=== PATIENT | female | born 1985 | race Caucasian/White ===

== ENCOUNTER 2022-03-02 05:59 | Inpatient (IN) | payer OTHER ==
[2022-03-02] MEDS ORDERED: Carboprost Tromethamine 250 MCG/1 ML Amp IM PRN ×3 (06:00→08:45)
[2022-03-02] MEDS ORDERED: Sodium Chloride 0.9% 10 ML Syringe FLUSH SCH (06:00)
[2022-03-02] MEDS ORDERED: Oxytocin/Normal Saline 30 UNIT/500 ML BAG IV SCH ×2 (06:00→08:45)
[2022-03-02] MEDS ORDERED: Lactated Ringers 1,000 ML IV SCH ×4 (06:00→08:45)
[2022-03-02] MEDS ORDERED: Sodium Chloride 0.9% 10 ML Syringe FLUSH PRN ×2 (06:00→08:45)
[2022-03-02] MEDS ORDERED: ceFAZolin 1 GM in Sodium Chloride 0.9% 50 ML IV SCH (06:00)
[2022-03-02] MEDS ORDERED: Methylergonovine 0.2 MG Tab PO PRN ×2 (06:00→08:45)
[2022-03-02] MEDS ORDERED: Oxytocin 10 Units/1 ML SDV IM PRN ×2 (06:00→08:45)
[2022-03-02] MEDS ORDERED: Tranexamic Acid 1,000 MG in Sodium Chloride 0.9% 100 ML IV PRN ×5 (06:00→08:45)
[2022-03-02] MEDS ORDERED: Ondansetron 4 MG/2 ML SDV ONE (06:34)
[2022-03-02] MEDS ORDERED: Oxytocin 10 Units/1 ML SDV ONE (06:34)
[2022-03-02] MEDS ORDERED: ePHEDrine 50 MG/ML SDV ONE (06:34)
[2022-03-02] MEDS ORDERED: Phenylephrine 1% 10 MG/ML SDV ONE (06:34)
[2022-03-02] MEDS ORDERED: Ketorolac 30 MG/ML SDV ONE (06:34)
[2022-03-02] MEDS ORDERED: Dexmedetomidine 200 MCG/2 ML SDV ONE (06:35)
[2022-03-02] MEDS ORDERED: ceFAZolin 1 GM Vial ONE (06:35)
[2022-03-02] MEDS ORDERED: Sodium Bicarbonate 4.2% 2.5 MEQ/5 ML SDV ONE (06:36)
[2022-03-02] MEDS ORDERED: Oxytocin/Normal Saline 60 UNIT/1,000 ML BAG ONE (06:36)
[2022-03-02] MEDS ORDERED: Vasopressin 20 Units/1 ML MDV ONE (06:37)
[2022-03-02] MEDS ORDERED: Succinylcholine 200 MG/10 ML MDV ONE (06:37)
[2022-03-02] MEDS ORDERED: Methylergonovine 0.2 MG/1 ML Amp ONE (06:37)
[2022-03-02] MEDS ORDERED: Dexamethasone 4 MG/ML SDV ONE (06:39)
[2022-03-02] MEDS ORDERED: ceFAZolin 2 GM Vial IVPUSH ONE (07:00)
[2022-03-02] MEDS ORDERED: Citric Acid/Sodium Citrate Solution 30 ML Cup PO ONE (07:00)
[2022-03-02] MEDS ORDERED: Famotidine 20 MG/2 ML SDV IVPUSH ONE (07:09)
[2022-03-02] MEDS ORDERED: Measles, Mumps & Rubella Vaccine 0.5 ML SDV SUBCUT ONE (07:30)
[2022-03-02] MEDS ORDERED: Sodium Chloride 0.9% 10 ML Syringe IV ONE (07:47)
[2022-03-02] MEDS ORDERED: Sodium Bicarbonate 4.2% 2.5 MEQ/5 ML SDV IV ONE (07:47)
[2022-03-02] MEDS ORDERED: Ketorolac 30 MG/ML SDV IVPUSH ONE (07:47)
[2022-03-02] MEDS ORDERED: ePHEDrine 50 MG/ML SDV IV ONE (07:47)
[2022-03-02] MEDS ORDERED: Morphine PF 10 MG/10 ML SDV IT ONE (07:47)
[2022-03-02] MEDS ORDERED: Dexamethasone 4 MG/ML SDV IV ONE (07:47)
[2022-03-02] MEDS ORDERED: Dexmedetomidine 200 MCG/2 ML SDV IV ONE (07:47)
[2022-03-02] MEDS ORDERED: Ondansetron 4 MG/2 ML SDV IV ONE (07:47)
[2022-03-02] MEDS ORDERED: Phenylephrine 1% 10 MG/ML SDV IV ONE (07:47)
[2022-03-02] MEDS ORDERED: Sodium Chloride 0.9% 20 ML SDV ONE (07:47)
[2022-03-02] MEDS ORDERED: fentaNYL 100 MCG/2 ML SDV ITHECAL ONE (07:47)
[2022-03-02] MEDS: Lactated Ringers 1,000 ML IV SCH ×4 (08:25→19:02)
[2022-03-02] MEDS ORDERED: Misoprostol 400 MCG (4 X 100 MCG TAB) RECTAL PRN (08:45)
[2022-03-02] MEDS ORDERED: Naloxone 2 MG/2 ML Syringe IVPUSH PRN (08:45)
[2022-03-02] MEDS ORDERED: Ondansetron 4 MG/2 ML SDV IVPUSH PRN (08:45)
[2022-03-02] MEDS ORDERED: ePHEDrine 50 MG/ML SDV IVPUSH PRN (08:45)
[2022-03-02] MEDS ORDERED: Methylergonovine 0.2 MG/1 ML Amp IM PRN (08:45)
[2022-03-02] MEDS ORDERED: Acetaminophen 325 MG Tab PO PRN (08:45)
[2022-03-02] MEDS ORDERED: diphenhydrAMINE 50 MG/ML SDV IVPUSH PRN (08:45)
[2022-03-02] MEDS ORDERED: Oxytocin/Normal Saline 30 UNIT/500 ML BAG IV ONE (10:19)
[2022-03-02] MEDS: Ferrous Sulfate 325 MG Tab PO SCH (11:29)
[2022-03-02] MEDS: Prenatal Multivitamin with Calcium/Folic Acid/Iron Tab PO SCH (11:29)
[2022-03-02] MEDS: Simethicone 80 MG Tab.Chew PO SCH ×4 (11:30→20:34)
[2022-03-02] MEDS: Sodium Chloride 0.9% 10 ML Syringe FLUSH SCH ×2 (13:39→21:13)
[2022-03-02] MEDS: Ketorolac 30 MG/ML SDV IVPUSH SCH ×2 (14:11→20:12)
[2022-03-02] MEDS: Docusate Sodium 100 MG Cap PO PRN (20:34)
[2022-03-02] MEDS ORDERED: Calcium Carbonate 500 MG Tab.Chew PO PRN (21:33)
[2022-03-03] MEDS: Ketorolac 30 MG/ML SDV IVPUSH SCH (02:01)
[2022-03-03] MEDS: Docusate Sodium 100 MG Cap PO PRN ×2 (07:45→20:10)
[2022-03-03] MEDS: Ferrous Sulfate 325 MG Tab PO SCH (07:45)
[2022-03-03] MEDS: Simethicone 80 MG Tab.Chew PO SCH ×5 (07:45→20:10)
[2022-03-03] MEDS: Prenatal Multivitamin with Calcium/Folic Acid/Iron Tab PO SCH ×2 (07:45→08:27)
[2022-03-03] MEDS: Acetaminophen/oxyCODONE 325-5 MG Tab PO PRN ×4 (07:45→20:10)
[2022-03-03] MEDS: Ibuprofen 800 MG Tab PO PRN ×2 (08:01→16:09)
[2022-03-03] MEDS: Sodium Chloride 0.9% 10 ML Syringe FLUSH SCH (08:27)
[2022-03-03] MEDS ORDERED: Ibuprofen 800 MG Tab PO PRN (10:00)
[2022-03-04] MEDS: Acetaminophen/oxyCODONE 325-5 MG Tab PO PRN ×3 (00:22→09:06)
[2022-03-04] MEDS: Ibuprofen 800 MG Tab PO PRN ×2 (00:23→09:05)
[2022-03-04] MEDS: Ferrous Sulfate 325 MG Tab PO SCH (09:04)
[2022-03-04] MEDS: Docusate Sodium 100 MG Cap PO PRN (09:04)
[2022-03-04] MEDS: Prenatal Multivitamin with Calcium/Folic Acid/Iron Tab PO SCH (09:04)
[2022-03-04] MEDS: Simethicone 80 MG Tab.Chew PO SCH (09:04)
[2022-03-04] MEDS ORDERED: Measles, Mumps & Rubella Vaccine 0.5 ML SDV SUBCUT ONE (09:50)
== END 2022-03-04 10:20 | disposition home or self-care (01) | DRG 788 ==
LOC: DL.OB 05:59 → OBSVTOIN 08:19 → MERGE 08:19
PROVIDERS: ADMIT Family Medicine; ATTEND Family Medicine
PROC: 10D00Z1 Extraction of Products of Conception, Low, Open Approach (ICD-10-PCS; principal; 2022-03-02)
PROC: 4A1HXCZ Monitoring of Products of Conception, Cardiac Rate, External Approach (ICD-10-PCS; 2022-03-02)
DX: O34.211 Maternal care for low transverse scar from previous cesarean delivery (principal); Z3A.39 39 weeks gestation of pregnancy; Z37.0 Single live birth; O99.214 Obesity complicating childbirth; D64.9 Anemia, unspecified; O99.02 Anemia complicating childbirth; O99.284 Endocrine, nutritional and metabolic diseases complicating childbirth; E05.90 Thyrotoxicosis, unspecified without thyrotoxic crisis or storm; Z86.16 Personal history of COVID-19; Z86.2 Personal history of diseases of the blood and blood-forming organs and certain disorders involving the immune mechanism; Z79.82 Long term (current) use of aspirin; O43.193 Other malformation of placenta, third trimester; Z20.822 Contact with and (suspected) exposure to COVID-19
CPT/HCPCS: 01961; 36415; 59025; 59409; 85025; 85027; 86850; 86900; 86901; 90471; 90707; A9270-GY; J0330; J0690; J1100; J1885; J2270; J2370; J2405; J2590; J3010; J3490; J7120; U0002